=== PATIENT | female | born 1955 | race Caucasian/White ===

== ENCOUNTER 2024-12-29 06:51 | Day surgery (SDC) | payer MEDICARE, BC ==
[2024-12-29] MEDS: Lactated Ringers 1,000 ML IV SCH (07:06)
[2024-12-29] MEDS ORDERED: Propofol 200 MG/20 ML SDV ONE ×2 (07:35→08:58)
[2024-12-29] MEDS ORDERED: Atropine 0.4 MG/ML SDV ONE (08:45)
== END 2024-12-29 09:50 | disposition home or self-care (01) ==
LOC: VM.SDS 06:51
PROVIDERS: ATTEND Student in an Organized Health Care Education/Training Program
DX: Z12.11 Encounter for screening for malignant neoplasm of colon (principal); D12.2 Benign neoplasm of ascending colon; Z86.0100 Personal history of colon polyps, unspecified; E78.00 Pure hypercholesterolemia, unspecified; Z79.899 Other long term (current) drug therapy
CPT/HCPCS: 00811; 45381; 45385; 88305; J0461; J2704; J7120